=== PATIENT | female | born 1960 | race Caucasian/White ===

== ENCOUNTER → 2016-06-10 | Outpatient (CLI) | payer BC ==
[~2016-06-10] MED LIST: CEPH500C PO; CHOL20009 PO; MULT-513 PO; SUMA20SP; TAPAZOLE PO
--- NOTE | 2016-06-10 12:43 | MAMMOGRAPHY REPORT ---
BILATERAL DIGITAL SCREENING MAMMOGRAM TOMOSYNTHESIS WITH CAD: 06/10/2016 CLINICAL HISTORY: Routine screening. Patient has no complaints. TECHNIQUE: Breast tomosynthesis in addition to standard 2D mammography was performed. Current study was also evaluated with a Computer Aided Detection (CAD) system. COMPARISON: Comparison is made to exams dated: 06/08/2015 mammogram, 06/04/2014 mammogram, 05/31/2012 mammogram, 06/13/2014 mammogram, 06/03/2013 mammogram, and 05/11/2011 mammogram - [facility]. BREAST COMPOSITION: There are scattered areas of fibroglandular density in both breasts. FINDINGS: No suspicious masses, calcifications, or areas of architectural distortion are noted in e ither breast. There has been no significant interval change compared to prior exams. IMPRESSION: ACR BI-RADS CATEGORY 1: NEGATIVE There is no mammographic evidence of malignancy. A 1 year screening mammogram is recommended. The p atient will receive written notification of the results. Approximately 10% of breast cancers are not detected with mammography. A negative mammographic repor t should not delay biopsy if a clinically suggestive mass is present. Trish Graff M.D. ah/:06/10/2016 07:44:00 Edge Worker: Anika LÓPEZ(Jackie)(M), [facility] letter sent: Normal 1/2 BI-RADS Code: ACR BI-RADS Category 1: Negative
== END | disposition home or self-care (01) ==
LOC: C.MAMM 07:04
PROVIDERS: ATTEND Family Medicine
DX: Z12.31 Encounter for screening mammogram for malignant neoplasm of breast (principal)

== ENCOUNTER 2016-10-17 11:34 | Emergency (ER) | payer BC, OTHER ==
[~2016-10-17] VITALS: Ht 165.1 cm; Wt 92.0 kg
[~2016-10-17 11:34] MED LIST changes: -CEPH500C PO; -CHOL20009 PO
[2016-10-17 11:38] VITALS: BP 137/86; PULSE 98; TEMP 36.7; O2SAT 96; Ht 165.1 cm; Wt 92.0 kg
[2016-10-17] MEDS ORDERED: CEPH500C PO (12:02)
--- NOTE | 2016-10-17 12:03 | EMERGENCY ROOM VISIT NOTE ---
History First contact with patient: 11:48 Chief Complaint: BITE Stated Complaint: BITE ON L THUMB History of Present Illness The patient is a 56 year old female who presents to the Emergency Room via private vehicle with complaints of "bite on left thumb". The patient states that Monday, while She felt a bite on the left thumb. She believes it was sometime of insect, and notes that it was not an animal. She notes pain in the left thumb rated as a 6/10. It is throbbing in nature. She is right-handed. There is minimal drainage. She notes she is feeling warm. She denies any nausea, vomiting, joint pain. Tetanus is up-to-date. Review of Systems A complete 6-point Review of Systems was discussed with the patient, with pertinent positives and negatives listed in the History of Present Illness. All remaining Review of Systems questions can be considered negative unless otherwise specified. Past Medical/Surgical History No pertinent past medical history. Family History Cancer Social History Smoking Status: Never Smoker Social History: Patient lives with male. Current/Historical Medications Scheduled Cholecalciferol (Vitamin D), 2,000 UNITS PO DAILY Allergies Coded Allergies: No Known Drug Allergy (Verified Allergy, Unknown, `, 10/17/16) Physical Exam Vital Signs Date Time Temp Pulse Resp B/P Pulse Ox O2 Delivery O2 Flow Rate FiO2 10/17/16 11:38 36.7 98 18 137/86 96 Physical Exam VITAL SIGNS - Vital signs and nursing notes were reviewed. Patient is afebrile , normotensive, non-tachycardic and is saturating well on room air at 96%. GENERAL -56-year-old female appearing her stated age who is in no acute distress. Communicates well with provider and answers questions appropriately. SKIN - there is a small punctate subcentimeter erythematous circular region to the medial aspect of the base of the left first digit. There is a small black center. No evidence of retained tick tick bite. No evidence of erythema migrans. Minimal cellulitic region. Medical Decision & Procedures Medical Decision Patient was seen and evaluated as above. She presents today with a small punctate bite in his concern for retained tick. There is no evidence of tick bite. She states she felt something bite her and I suspect this was likely insect or spider. No evidence of necrotic infection. There is minimal eyes cellulitis of this region with a small punctate black center which I suspect has been draining. There is full range of motion of this region. She is neurovascularly intact in this region. She was placed on Keflex, and instructed to cover the area with Neosporin or bacitracin. She is to return with worsening. She is to follow-up with her family doctor regarding today's visit. She was educated upon today's findings, had questions prior to discharge , and was discharged home in good condition. In evaluation treatment this patient following differential diagnoses were entertained: Lyme disease, erythema migrans, cellulitis, skin or option, among others. Impression Primary Impression: Insect bites Departure Information Dispostion Home / Self-Care Condition GOOD Referrals Doni Haskins III, M.D. (PCP) Patient Instructions My [facility] Additional Instructions You were seen in the emergency department for some type of insect bite on your left thumb. There is a small localized area of infection. For this reason you've been placed upon Keflex, 500 mg 3 times daily for 5 days. Please keep the area clean. Please cover with bacitracin or Neosporin and then a Band-Aid. Please do this for the next for 5 days. Please follow-up with her family doctor for recheck of your thumb in the next 2- 3 days. Please return to the emergency department with any new/concerning symptoms.
[2016-10-17] MEDS ORDERED: CHOL20009 PO (12:08)
== END 2016-10-17 12:06 | disposition home or self-care (01) ==
LOC: C.EDB 11:35 → C.EDD 12:06
DX: S60.362A Insect bite (nonvenomous) of left thumb, initial encounter (principal); Z79.899 Other long term (current) drug therapy; W57.XXXA Bitten or stung by nonvenomous insect and other nonvenomous arthropods, initial encounter

== ENCOUNTER → 2017-06-19 | Outpatient (CLI) | payer BC ==
[~2017-06-19] MED LIST changes: +CHOL20009 PO; -MULT-513 PO; -SUMA20SP; -TAPAZOLE PO
--- NOTE | 2017-06-19 15:51 | MAMMOGRAPHY REPORT ---
BILATERAL DIGITAL SCREENING MAMMOGRAM TOMOSYNTHESIS WITH CAD: 06/19/2017 CLINICAL HISTORY: Routine screening. Patient has no complaints. TECHNIQUE: Breast tomosynthesis in addition to standard 2D mammography was performed. Current study was also evaluated with a Computer Aided Detection (CAD) system. COMPARISON: Comparison is made to exams dated: 06/10/2016 mammogram, 06/13/2014 ultrasound, 06/13/2014 mammogram, 06/04/2014 mammogram, and 06/03/2013 mammogram - [facility]. BREAST COMPOSITION: There are scattered areas of fibroglandular density in both breasts. FINDINGS: No suspicious masses, calcifications, or areas of architectural distortion are noted in ei ther breast. There has been no significant interval change compared to prior exams. IMPRESSION: ACR BI-RADS CATEGORY 1: NEGATIVE There is no mammographic evidence of malignancy. A 1 year screening mammogram is recommended. The pa tient will receive written notification of the results. Approximately 10% of breast cancers are not detected with mammography. A negative mammographic report should not delay biopsy if a clinically suggestive mass is present. Trish Graff M.D. /:06/19/2017 07:48:44 Clinical Admissions Manager: Davida Smith, [facility] letter sent: Normal 1/2 BI-RADS Code: ACR BI-RADS Category 1: Negative
== END | disposition home or self-care (01) ==
LOC: C.MAMM 07:07
PROVIDERS: ATTEND Family Medicine
DX: Z12.31 Encounter for screening mammogram for malignant neoplasm of breast (principal)